=== PATIENT | male | born 2000 | race African-American/Black ===

== ENCOUNTER 2020-09-12 22:02 | Emergency (ER) | payer OTHER ==
[~2020-09-12] VITALS: Ht 190.5 cm; Wt 112.4 kg
--- NOTE | 2020-09-12 23:30 | REPVR ---
PROCEDURE INFORMATION: Exam: XR Right Shoulder Exam date and time: 09/12/2020 11:03 PM Age: 20 years old Clinical indication: Pain; Shoulder; Right TECHNIQUE: Imaging protocol: XR Right shoulder. Views: 2 or more views. COMPARISON: No relevant prior studies available. FINDINGS: Bones/joints: Normal. Soft tissues: Normal. IMPRESSION: Negative right shoulder. Electronically signed by: Salo Teixeira On 09/12/2020 23:30:56 PM
[2020-09-13 00:09] VITALS: BP 139/94
== END 2020-09-13 00:14 | disposition home or self-care (01) ==
LOC: M ED 22:02
DX: M75.81 Other shoulder lesions, right shoulder (principal); Z88.0 Allergy status to penicillin